=== PATIENT | female | born 1990 | race Caucasian/White ===

== ENCOUNTER 2017-05-04 17:21 | Emergency (ER) | payer SELFPAY ==
[2017-05-04 17:27] VITALS: BP 119/71
--- NOTE | 2017-05-04 17:49 | RADIOLOGY REPORT (SQ) ---
EXAM DESCRIPTION: ELBOW RIGHT OVER 2 VIEWS COMPLETED DATE/TIME: 05/04/2017 5:39 pm REASON FOR STUDY: Fall, Pain to right elbow COMPARISON: None. NUMBER OF VIEWS: Four views. TECHNIQUE: AP, lateral, and both oblique radiographic images acquired of the right elbow. LIMITATIONS: None. FINDINGS: MINERALIZATION: Normal. BONES: A nondisplaced fracture is seen of the radial head ; no intra-articular extension is demonstra aislinn. JOINT: The joint effusion is present. SOFT TISSUES: No soft tissue swelling. No foreign body. OTHER: No other significant finding. IMPRESSION: Nondisplaced radial head fracture. TECHNICAL DOCUMENTATION: JOB ID: [id number] [employer]- All Rights Reserved
[2017-05-04] MEDS ORDERED: HYDROCODONE/ACETAMINOPHEN 5-325 MG TABLET PO ONE (18:00)
--- NOTE | 2017-05-04 18:04 | ER Document Report ---
ED Extremity Problem, Upper - General Chief Complaint: Elbow Injury Stated Complaint: LEFT ELBOW INJURY Time Seen by Provider: 05/04/17 17:31 Mode of Arrival: Ambulatory Information source: Patient TRAVEL OUTSIDE OF THE [place] IN LAST 30 DAYS: No - HPI Patient complains to provider of: Injury, Pain, Right, Elbow Onset: This morning Recent injury: Yes Where: Public place Quality of pain: Achy Severity of pain: Moderate Context: Fall Associated symptoms: None Exacerbated by: Movement Relieved by: Nothing Similar symptoms previously: No Recently seen / treated by doctor: No Notes: Patient is a 27-year-old female presenting to the emergency room today complaining of pain and injury to her right elbow, states this morning she fell directly onto the elbow, causing her injury, she has had continued pain throughout the day which is worsened when she is moving it, she denies any numbness or tingling, no pain or injury elsewhere, no history of similar symptoms previously - Related Data Allergies/Adverse Reactions: Sulfa (Sulfonamide Antibiotics) Allergy (Severe, Verified 05/04/17 18:05) Hives Past Medical History - General Information source: Patient - Social History Smoking Status: Never Smoker Family History: Reviewed & Not Pertinent Renal/ Medical History: Denies: Hx Peritoneal Dialysis Review of Systems - Review of Systems Constitutional: No symptoms reported EENT: No symptoms reported Cardiovascular: No symptoms reported Respiratory: No symptoms reported Gastrointestinal: No symptoms reported Genitourinary: No symptoms reported Female Genitourinary: No symptoms reported Musculoskeletal: See HPI Skin: No symptoms reported Hematologic/Lymphatic: No symptoms reported Neurological/Psychological: No symptoms reported -: Yes All other systems reviewed and negative Physical Exam - Vital signs Vitals: Temp Pulse Resp BP Pulse Ox 98.6 F 67 18 119/71 98 05/04/17 17:25 05/04/17 17:25 05/04/17 17:25 05/04/17 17:25 05/04/17 17:25 - Notes Notes: - General General appearance: Appears well, Alert In distress: None - HEENT Head: Normocephalic, Atraumatic Eyes: Normal Conjunctiva: Normal Extraocular movements intact: Yes Eyelashes: Normal Pupils: PERRL - Respiratory Respiratory status: No respiratory distress - Cardiovascular Rhythm: Regular - Abdominal Inspection: Normal - Back Back: Normal - Extremities General upper extremity: Right elbow with moderate swelling, mild tenderness at the radial head, pain with range of motion testing, distal sensation and motor is intact with 2+ radial pulses and brisk capillary refill General lower extremity: Normal inspection - Neurological Neuro grossly intact: Yes Orientation: AAOx4 Dixon Coma Scale Eye Opening: Spontaneous Dixon Coma Scale Verbal: Oriented Dixon Coma Scale Motor: Obeys Commands Davin Coma Scale Total: 15 - Psychological Associated symptoms: Normal affect, Normal mood - Skin Skin Temperature: Warm Skin Moisture: Dry Skin Color: Normal Course - Re-evaluation Re-evalutation: 05/04/17 18:02 Imaging findings discussed with patient at bedside which are consistent with nondisplaced radial head fracture, patient was placed in a splint and provided with pain medication and information for follow-up, advised to return if any additional concerns, patient acknowledges understanding and agreement with this plan - Vital Signs Vital signs: Temp Pulse Resp BP Pulse Ox 98.6 F 67 18 119/71 98 05/04/17 17:25 05/04/17 17:25 05/04/17 17:25 05/04/17 17:25 05/04/17 17:25 - Diagnostic Test Radiology reviewed: Image reviewed, Reports reviewed Procedures - Immobilization Right Elbow Time completed: 18:03 Pre-Proc Neuro Vasc Exam: Normal Immobilizer type: Long arm posterior Performed by: PCT Post-Proc Neuro Vasc Exam: Normal Alignment checked and good: Yes Right Arm Time completed: 18:04 Pre-Proc Neuro Vasc Exam: Normal Immobilizer type: Sling Performed by: PCT Post-Proc Neuro Vasc Exam: Normal Alignment checked and good: Yes Discharge - Discharge Clinical Impression: Radial head fracture, closed Qualifiers: Encounter type: initial encounter Fracture alignment: nondisplaced Laterality: right Qualified Code(s): S52.124A - Nondisplaced fracture of head of right radius, initial encounter for closed fracture Condition: Stable Disposition: HOME, SELF-CARE Instructions: Ice & Elevation ([facility]), Oral Narcotic Medication ([facility]), Radial Head Fracture ([facility]), Temporary Splint ([facility]) Additional Instructions: Follow up with your primary care provider and an orthopedic surgeon in one to 2 days. Return to the emergency room immediately if symptoms worsen or any additional concerns. Ice and elevate the affected extremity. Prescriptions: Hydrocodone/Acetaminophen [Hydrocodon-Acetaminophen 5-325] 1 each PO Q6 #20 tablet Referrals: LILLIAN MONTIEL MD [ACTIVE STAFF] - Follow up as needed
== END 2017-05-04 18:21 | disposition home or self-care (01) ==
LOC: ER 17:21
PROC: 2W38X1Z Immobilization of Right Upper Extremity using Splint (ICD-10-PCS; principal; 2017-05-04)
DX: S52.124A Nondisplaced fracture of head of right radius, initial encounter for closed fracture (principal); M25.521 Pain in right elbow; X58.XXXA Exposure to other specified factors, initial encounter
CPT/HCPCS: 99283